=== PATIENT | male | born 1990 | race Caucasian/White ===

== ENCOUNTER 2017-01-10 18:08 | Emergency (ER) | payer BC ==
[~2017-01-10] VITALS: Ht 172.7 cm; Wt 66.6 kg
[2017-01-10] MEDS ORDERED: IBUP600T26 PO (19:06)
[2017-01-10] MEDS ORDERED: NORCOTAB PO ×3 (19:06→19:10)
[2017-01-10] MEDS ORDERED: CLEO300C2 PO (19:12)
[2017-01-10] MEDS ORDERED: CLINDAMYCIN 150 MG CAP PO ONE (19:15)
[2017-01-10] MEDS ORDERED: NORCO, ANEXSIA 5/325MG TABLET (HYDROcodone/ACETAMINOPHEN) PO ONE (19:15)
[2017-01-10 19:19] VITALS: BP 144/86
== END 2017-01-10 19:30 | disposition home or self-care (01) ==
LOC: M ED 18:08
DX: K02.9 Dental caries, unspecified (principal); S02.5XXA Fracture of tooth (traumatic), initial encounter for closed fracture; X58.XXXA Exposure to other specified factors, initial encounter; Y92.89 Other specified places as the place of occurrence of the external cause; Y93.89 Activity, other specified; Y99.9 Unspecified external cause status

== ENCOUNTER 2017-03-01 19:27 | Emergency (ER) | payer BC ==
[~2017-03-01] VITALS: Ht 170.2 cm; Wt 68.1 kg
[2017-03-01 19:27] VITALS: BP 133/84
[~2017-03-01 19:27] MED LIST: CLEO300C2 PO; IBUP-1022 PO; NORCOTAB PO
[2017-03-01] MEDS ORDERED: TYLE325T5 PO (19:49)
== END 2017-03-01 20:42 | disposition left against medical advice (07) ==
LOC: M ED 19:27
DX: K08.89 Other specified disorders of teeth and supporting structures (principal); Z53.21 Procedure and treatment not carried out due to patient leaving prior to being seen by health care provider

== ENCOUNTER → 2022-12-08 | Outpatient (CLI) | payer OTHER ==
[~2022-12-08] MED LIST changes: +HYDR-3715 PO; -NORCOTAB PO; +TYLE325T5 PO
== END ==
LOC: M PLAIMG 15:11
PROVIDERS: ATTEND Nurse Practitioner Family
DX: R10.9 Unspecified abdominal pain (principal)

== ENCOUNTER → 2023-08-31 | Outpatient (CLI) | payer OTHER | LOC: M PLAIMG 11:24 | PROVIDERS: ATTEND Nurse Practitioner Family | DX: M25.562 Pain in left knee (principal); S89.92XA Unspecified injury of left lower leg, initial encounter; M25.552 Pain in left hip; Y93.9 Activity, unspecified; Y92.9 Unspecified place or not applicable ==